=== PATIENT | female | born 1965 | race Caucasian/White ===

== ENCOUNTER 2022-07-15 17:56 | Emergency (ER) | payer MEDICARE ==
[~2022-07-15 17:56] MED LIST: Iopamidol 370 76% 100 ML VIAL ONE
[2022-07-15] MEDS ORDERED: Morphine 4 MG/ML VIAL ONE (18:56)
[2022-07-15] MEDS ORDERED: Ondansetron PF 4 MG/2 ML Vial ONE (18:56)
[2022-07-15] MEDS ORDERED: Pantoprazole 40 MG VIAL ONE (18:57)
[2022-07-15 19:01] LABS: Bilirubin Neg (Negative); Blood, Urine Negative (Negative); Clarity Clear (Clear); Glucose, Urine (Dipstick) Normal (Negative); Ketone, Urine 5 mg/dL (Negative); Leukocyte Negative (Negative); Nitrite Negative (Negative); Protein, Urine (Dipstick) 30 mg/dl (Neg-Trace); Specific Gravity, Urine 1.025 (1.005-1.030); Urobilinogen Normal mg/dL (Less than 2)
[2022-07-15 19:09] LABS: Bacteria/HPF Rare-Few HPF (None Seen); Mucous/LPF 2+ LPF (<2+); RBC/HPF 0-3 HPF (0-3); Squamous Epithelial 0-3 HPF (0-3); WBC/HPF 0-3 HPF (0-3)
[2022-07-15 19:16] LABS: #Basophils 0.1 10x3/uL (0.0-0.2); #Eosinphils 0.3 10x3/uL (0.0-0.5); #Monocytes 0.9 10x3/uL (0.0-1.1); #Neutrophils 7.1 10x3/uL (1.5-8.4); %Basophils 0.6 % (0.0-2.0); %Eosinophils 2.4 % (0.0-6.0); %Monocytes 8.9 % (0.0-10.0); %Neutrophils 69.8 % (40.0-75.0); Hemoglobin 13.3 g/dL (12.0-15.5); Mean Corpuscular Hemoglobin 30.7 pg (27.0-33.0); Mean Corpuscular Volume 87.8 fl (81.6-98.3); Mean Platelet Volume 9.8 fl (7.4-10.4); Platelet Count 260 10x3/uL (150-450); RBC Distribution Width 12.4 % (11.5-14.5); Red Blood Cell (RBC) Count 4.33 10x6/uL (3.90-5.03); White Blood Cell (WBC) Count 10.2 10x3/uL (3.5-10.5)
[2022-07-15 19:33] LABS: ALT (SGPT) 40 U/L (8-55); AST (SGOT) 48 U/L (5-34); Albumin 4.2 g/dL (3.5-5.0); Alkaline Phosphatase 109 U/L (40-110); Anion Gap 14 mmol/L (10-20); BUN (Urea Nitrogen) 12 mg/dL (9.8-20.1); Bilirubin, Total 0.5 mg/dL (0.2-1.2); Calc. Creatinine Clearance 0 mL/min (70-130); Calcium 9.4 mg/dL (7.8-10.44); Carbon Dioxide 28 mmol/L (22-29); Chloride 101 mmol/L (98-107); Estimated GFR 84; Globulin 3.1 g/dL (2.4-3.5); Glucose 125 mg/dL (70-105); Lipase 30 U/L (8-78); Potassium 3.8 mmol/L (3.5-5.1); Protein, Total 7.3 g/dL (6.0-8.3); Sodium 139 mmol/L (136-145)
[2022-07-15] MEDS ORDERED: Ketorolac Tromethamine 30 MG/ML VIAL ONE (21:03)
== END 2022-07-15 21:05 | disposition home or self-care (01) ==
LOC: CSHERS 17:56
DX: K29.70 Gastritis, unspecified, without bleeding (principal)
CPT/HCPCS: 74177; 80053; 81003; 81015; 82274; 83690; 85025; 96361; 96374; 96375; C9113; J1885; J2270; J2405; Q9967

== ENCOUNTER 2023-01-17 10:04 | Observation (INO) | payer MEDICARE ==
[2023-01-17] MEDS ORDERED: Aspirin Chewable 81 MG TAB ONE (10:51)
[2023-01-17] MEDS ORDERED: Nitroglycerin 0.4 MG TAB 1 EACH ONE (10:52)
[2023-01-17 10:57] LABS: #Basophils 0.1 10x3/uL (0.0-0.2); #Eosinphils 0.3 10x3/uL (0.0-0.5); #Monocytes 0.6 10x3/uL (0.0-1.1); #Neutrophils 3.3 10x3/uL (1.5-8.4); %Eosinophils 4.9 % (0.0-6.0); %Lymphocytes 29.2 % (18.0-47.0); %Monocytes 9.9 % (0.0-10.0); %Neutrophils 54.7 % (40.0-75.0); Hemoglobin 14.6 g/dL (12.0-15.5); Mean Corpuscular HGB CONC 34.7 g/dL (32.0-36.0); Mean Corpuscular Volume 86.4 fl (81.6-98.3); Mean Platelet Volume 9.6 fl (7.4-10.4); Platelet Count 267 10x3/uL (150-450); Red Blood Cell (RBC) Count 4.87 10x6/uL (3.90-5.03); White Blood Cell (WBC) Count 6.1 10x3/uL (3.5-10.5)
[2023-01-17 11:07] LABS: ALT (SGPT) 27 U/L (8-55); AST (SGOT) 27 U/L (5-34); Albumin 4.7 g/dL (3.5-5.0); Alkaline Phosphatase 97 U/L (40-110); Anion Gap 16 mmol/L (10-20); BUN (Urea Nitrogen) 12 mg/dL (9.8-20.1); Bilirubin, Total 0.5 mg/dL (0.2-1.2); Calc. Creatinine Clearance 0 mL/min (70-130); Calcium 9.5 mg/dL (7.8-10.44); Carbon Dioxide 26 mmol/L (22-29); Chloride 102 mmol/L (98-107); Estimated GFR 80; Globulin 3.4 g/dL (2.4-3.5); Glucose 126 mg/dL (70-105); Lipase 38 U/L (8-78); Protein, Total 8.1 g/dL (6.0-8.3); Sodium 140 mmol/L (136-145)
[2023-01-17] MEDS ORDERED: Morphine 4 MG/ML VIAL ONE (11:30)
[2023-01-17] MEDS ORDERED: Ondansetron PF 4 MG/2 ML Vial ONE (11:30)
[2023-01-17] MEDS ORDERED: Dextrose 5% in Water 1,000 ML IV PRN (12:21)
[2023-01-17] MEDS ORDERED: HumaLOG 300 UNITS/3 ML VIAL SC PRN ×2 (12:21)
[2023-01-17] MEDS ORDERED: Dextrose 50% Abboject 50 ML SYRINGE SLOW IVP PRN (12:21)
[2023-01-17 12:46] LABS: Magnesium 1.9 mg/dL (1.6-2.6)
[2023-01-17 13:58] LABS: Troponin I Less than 0.010 ng/mL (< 0.028)
[2023-01-17 14:28] LABS: Hemoglobin A1c 5.5 % (4.0-6.0)
[2023-01-17 15:48] VITALS: BMI 29.8
[2023-01-17 17:39] LABS: Troponin I 0.013 ng/mL (< 0.028)
[2023-01-17] MEDS ORDERED: ALPRAZolam 0.5 MG TAB PO SCH (22:30)
[2023-01-17] MEDS ORDERED: traZODone HCl 50 MG TAB PO SCH (22:30)
[2023-01-18 03:40] LABS: #Basophils 0.1 10x3/uL (0.0-0.2); #Eosinphils 0.4 10x3/uL (0.0-0.5); #Monocytes 0.7 10x3/uL (0.0-1.1); #Neutrophils 2.3 10x3/uL (1.5-8.4); %Basophils 1.1 % (0.0-2.0); %Eosinophils 6.4 % (0.0-6.0); %Lymphocytes 46.6 % (18.0-47.0); %Monocytes 10.3 % (0.0-10.0); %Neutrophils 35.3 % (40.0-75.0); Hemoglobin 12.8 g/dL (12.0-15.5); Mean Corpuscular HGB CONC 33.9 g/dL (32.0-36.0); Mean Corpuscular Volume 88.7 fl (81.6-98.3); Mean Platelet Volume 9.8 fl (7.4-10.4); Platelet Count 241 10x3/uL (150-450); RBC Distribution Width 12.3 % (11.5-14.5); Red Blood Cell (RBC) Count 4.26 10x6/uL (3.90-5.03); White Blood Cell (WBC) Count 6.4 10x3/uL (3.5-10.5)
[2023-01-18 03:45] LABS: Anion Gap 14 mmol/L (10-20); BUN (Urea Nitrogen) 12 mg/dL (9.8-20.1); Calc. Creatinine Clearance 90 mL/min (70-130); Calcium 8.9 mg/dL (7.8-10.44); Carbon Dioxide 29 mmol/L (22-29); Chloride 103 mmol/L (98-107); Estimated GFR 78; Glucose 99 mg/dL (70-105); Potassium 4.4 mmol/L (3.5-5.1); Sodium 142 mmol/L (136-145)
[2023-01-18] MEDS ORDERED: DULoxetine 30 MG CAP PO SCH (09:00)
[2023-01-18] MEDS ORDERED: lamoTRIgine 100 MG TAB PO SCH (09:00)
[2023-01-18] MEDS ORDERED: Dicyclomine 10 MG CAP PO SCH (09:00)
[2023-01-18] MEDS ORDERED: Propranolol HCl LA 60 MG CAP PO SCH (09:00)
[2023-01-18] MEDS ORDERED: Aspirin Chewable 81 MG TAB PO SCH (09:00)
[2023-01-18 15:20] VITALS: BP 110/64; TEMP 98.2
[2023-01-18] MEDS ORDERED: traZODone HCl 50 MG TAB PO SCH (21:00)
[2023-01-18] MEDS ORDERED: ALPRAZolam 0.5 MG TAB PO SCH (21:00)
== END 2023-01-18 15:20 | disposition home or self-care (01) ==
LOC: CSHERS 10:04 → CSHTELE 14:37
PROVIDERS: ADMIT Family Medicine; ATTEND Nurse Practitioner Family
DX: R07.2 Precordial pain (principal); E11.9 Type 2 diabetes mellitus without complications; E78.5 Hyperlipidemia, unspecified; I10 Essential (primary) hypertension; F31.9 Bipolar disorder, unspecified; R06.02 Shortness of breath; R51.9 Headache, unspecified; Z79.899 Other long term (current) drug therapy; Z88.2 Allergy status to sulfonamides; Z88.3 Allergy status to other anti-infective agents; Z88.8 Allergy status to other drugs, medicaments and biological substances; Z87.19 Personal history of other diseases of the digestive system; Z86.79 Personal history of other diseases of the circulatory system
CPT/HCPCS: 36415; 36416; 71045; 80048; 80053; 83036; 83690; 83735; 84443; 84484; 85025; 93005; 93010; 93306; 94762; 96372; 96374; 96375; G0378; J1650; J2270; J2405

== ENCOUNTER 2023-05-19 10:59 | Emergency (ER) | payer MEDICARE ==
[~2023-05-19 10:59] MED LIST changes: +Iopamidol 300 61% 100 ML VIAL FS ONE; -Iopamidol 370 76% 100 ML VIAL ONE
[2023-05-19] MEDS ORDERED: Pantoprazole 40 MG VIAL ONE (11:59)
[2023-05-19] MEDS ORDERED: Ondansetron PF 4 MG/2 ML Vial ONE (11:59)
[2023-05-19] MEDS ORDERED: Morphine 4 MG/ML VIAL ONE (11:59)
[2023-05-19 12:28] LABS: #Basophils 0.1 10x3/uL (0.0-0.2); #Eosinphils 0.2 10x3/uL (0.0-0.5); #Monocytes 0.6 10x3/uL (0.0-1.1); %Basophils 0.5 % (0.0-2.0); %Eosinophils 2.4 % (0.0-6.0); %Lymphocytes 15.3 % (18.0-47.0); %Monocytes 6.9 % (0.0-10.0); %Neutrophils 74.6 % (40.0-75.0); Hematocrit 42.3 % (34.9-44.5); Hemoglobin 14.7 g/dL (12.0-15.5); Mean Corpuscular HGB CONC 34.8 g/dL (32.0-36.0); Mean Corpuscular Hemoglobin 29.9 pg (27.0-33.0); Mean Corpuscular Volume 86.2 fl (81.6-98.3); Mean Platelet Volume 9.8 fl (7.4-10.4); Platelet Count 257 10x3/uL (150-450); RBC Distribution Width 11.9 % (11.5-14.5); Red Blood Cell (RBC) Count 4.91 10x6/uL (3.90-5.03); White Blood Cell (WBC) Count 9.3 10x3/uL (3.5-10.5)
[2023-05-19 12:41] LABS: ALT (SGPT) 18 U/L (8-55); AST (SGOT) 23 U/L (5-34); Albumin 4.3 g/dL (3.5-5.0); Alkaline Phosphatase 83 U/L (40-110); Anion Gap 17 mmol/L (10-20); BUN (Urea Nitrogen) 15 mg/dL (9.8-20.1); Bilirubin, Total 0.6 mg/dL (0.2-1.2); Calc. Creatinine Clearance 0 mL/min (70-130); Carbon Dioxide 25 mmol/L (22-29); Chloride 103 mmol/L (98-107); Estimated GFR 85; Globulin 3.3 g/dL (2.4-3.5); Glucose 124 mg/dL (70-105); Lipase 22 U/L (8-78); Potassium 4.5 mmol/L (3.5-5.1); Protein, Total 7.6 g/dL (6.0-8.3); Sodium 140 mmol/L (136-145)
[2023-05-19] MEDS ORDERED: Ketorolac Tromethamine 30 MG/ML VIAL ONE (13:04)
[2023-05-19] MEDS ORDERED: Metoclopramide HCl 10 MG/2 ML VIAL ONE (13:04)
[2023-05-19 13:19] LABS: Bilirubin Neg (Negative); Blood, Urine Negative (Negative); Clarity Clear (Clear); Glucose, Urine (Dipstick) Normal (Negative); Ketone, Urine Negative (Negative); Leukocyte Negative (Negative); Nitrite Negative (Negative); Protein, Urine (Dipstick) Negative (Neg-Trace); Urobilinogen Normal mg/dL (Less than 2)
[2023-05-19 13:32] LABS: Bacteria/HPF None Seen HPF (None Seen); CAUTI Indications for Culture Pelvic or flank pain; RBC/HPF None Seen HPF (0-3); Squamous Epithelial None Seen HPF (0-3); Urine Culture Reflex No No; WBC/HPF None Seen HPF (0-3)
== END 2023-05-19 14:29 | disposition home or self-care (01) ==
LOC: CSHERS 10:59
DX: K31.84 Gastroparesis (principal); E11.9 Type 2 diabetes mellitus without complications
CPT/HCPCS: 74177; 80053; 81001; 83605; 83690; 85025; 86850; 86900; 86901; 96361; 96374; 96375; C9113; J1885; J2270; J2405; J2765; Q9967

== ENCOUNTER 2023-05-31 14:47 | Emergency (ER) | payer MEDICARE ==
[2023-05-31] MEDS ORDERED: HYDROcodone/Acetaminophen 5/325 mg Tablet ONE (16:26)
[2023-05-31] MEDS ORDERED: Ketorolac Tromethamine 30 MG/ML VIAL ONE (16:27)
== END 2023-05-31 16:33 | disposition home or self-care (01) ==
LOC: CSHERS 14:47
DX: S43.401A Unspecified sprain of right shoulder joint, initial encounter (principal); X50.1XXA Overexertion from prolonged static or awkward postures, initial encounter
CPT/HCPCS: J1885

== ENCOUNTER → 2023-07-24 | Day surgery (SDC) | payer MEDICARE ==
[~2023-07-24] MED LIST changes: -Iopamidol 300 61% 100 ML VIAL FS ONE; +Iopamidol-M 300 61% 15 ML VIAL ONE
[2023-07-24 10:46] VITALS: BP 145/70; TEMP 97.5
== END ==
LOC: CSHRAD 10:00
PROVIDERS: ATTEND Neurological Surgery
PROC: B02BYZZ Computerized Tomography (CT Scan) of Spinal Cord using Other Contrast (ICD-10-PCS; principal; 2023-07-24)
DX: M47.12 Other spondylosis with myelopathy, cervical region (principal)
CPT/HCPCS: 62302; 72126; Q9967

== ENCOUNTER 2023-10-09 14:59 | Outpatient (CLI) | payer MEDICARE | END 2023-10-09 15:00 | disposition home or self-care (01) | LOC: CSHRAD 14:59 | PROVIDERS: ATTEND Neurological Surgery | DX: M54.12 Radiculopathy, cervical region (principal); Z98.1 Arthrodesis status; Z96.698 Presence of other orthopedic joint implants | CPT/HCPCS: 72040 ==

== ENCOUNTER 2024-02-04 12:30 | Emergency (ER) | payer MEDICARE ==
[2024-02-04 13:20] LABS: #Basophils 0.06 10x3/uL (0.0-0.2); #Eosinphils 0.15 10x3/uL (0.0-0.5); #Monocytes 0.65 10x3/uL (0.0-1.1); %Eosinophils 2.6 % (0.0-6.0); %Lymphocytes 32.8 % (18.0-47.0); %Monocytes 11.3 % (0.0-10.0); %Neutrophils 52.1 % (40.0-75.0); Hematocrit 38.8 % (34.9-44.5); Hemoglobin 13.9 g/dL (12.0-15.5); Mean Corpuscular HGB CONC 35.8 g/dL (32.0-36.0); Mean Corpuscular Hemoglobin 31.8 pg (27.0-33.0); Mean Corpuscular Volume 88.8 fl (81.6-98.3); Mean Platelet Volume 9.9 fl (7.4-10.4); Platelet Count 262 10x3/uL (150-450); RBC Distribution Width 11.9 % (11.5-14.5); Red Blood Cell (RBC) Count 4.37 10x6/uL (3.90-5.03); White Blood Cell (WBC) Count 5.8 10x3/uL (3.5-10.5)
[2024-02-04 13:30] LABS: ALT (SGPT) 17 U/L (8-55); AST (SGOT) 21 U/L (5-34); Albumin 3.8 g/dL (3.5-5.0); Alkaline Phosphatase 82 U/L (40-110); Anion Gap 12 mmol/L (10-20); BUN (Urea Nitrogen) 10 mg/dL (9.8-20.1); Bilirubin, Total 0.4 mg/dL (0.2-1.2); Calc. Creatinine Clearance 0 mL/min (70-130); Calcium 8.9 mg/dL (7.8-10.44); Carbon Dioxide 24 mmol/L (22-29); Chloride 107 mmol/L (98-107); Estimated GFR 92; Globulin 3.3 g/dL (2.4-3.5); Glucose 72 mg/dL (70-105); Potassium 4.3 mmol/L (3.5-5.1); Protein, Total 7.1 g/dL (6.0-8.3); Sodium 139 mmol/L (136-145)
[2024-02-04] MEDS ORDERED: Aspirin Chewable 81 MG TAB ONE (13:30)
[2024-02-04] MEDS ORDERED: Acetaminophen 500 MG TAB ONE (13:30)
[2024-02-04 13:35] LABS: Troponin I Less than 0.010 ng/mL (< 0.028)
== END 2024-02-04 14:21 | disposition home or self-care (01) ==
LOC: CSHERS 12:30
DX: R07.89 Other chest pain (principal); E11.43 Type 2 diabetes mellitus with diabetic autonomic (poly)neuropathy; K31.84 Gastroparesis; Z55.6 Problems related to health literacy
CPT/HCPCS: 71045; 80053; 84484; 85025; 93005

== ENCOUNTER 2024-02-11 12:58 | Inpatient (IN) | payer MEDICARE ==
[~2024-02-11 12:58] MED LIST changes: +Iopamidol 300 61% 100 ML VIAL FS ONE; -Iopamidol-M 300 61% 15 ML VIAL ONE
[2024-02-11] MEDS ORDERED: Morphine 4 MG/ML VIAL ONE ×2 (13:54→17:03)
[2024-02-11] MEDS ORDERED: Ondansetron PF 4 MG/2 ML Vial ONE (13:54)
[2024-02-11 14:22] LABS: #Basophils 0.09 10x3/uL (0.0-0.2); #Eosinphils 0.17 10x3/uL (0.0-0.5); #Monocytes 0.84 10x3/uL (0.0-1.1); #Neutrophils 5.06 10x3/uL (1.5-8.4); %Basophils 1.1 % (0.0-2.0); %Eosinophils 2.1 % (0.0-6.0); %Lymphocytes 24.5 % (18.0-47.0); %Monocytes 10.3 % (0.0-10.0); %Neutrophils 61.8 % (40.0-75.0); Hematocrit 34.9 % (34.9-44.5); Hemoglobin 12.3 g/dL (12.0-15.5); Mean Corpuscular HGB CONC 35.2 g/dL (32.0-36.0); Mean Corpuscular Hemoglobin 30.8 pg (27.0-33.0); Mean Corpuscular Volume 87.5 fl (81.6-98.3); Mean Platelet Volume 10.3 fl (7.4-10.4); Platelet Count 218 10x3/uL (150-450); RBC Distribution Width 11.6 % (11.5-14.5); Red Blood Cell (RBC) Count 3.99 10x6/uL (3.90-5.03); White Blood Cell (WBC) Count 8.2 10x3/uL (3.5-10.5)
[2024-02-11 14:37] LABS: ALT (SGPT) 16 U/L (8-55); AST (SGOT) 20 U/L (5-34); Albumin 3.5 g/dL (3.5-5.0); Alkaline Phosphatase 82 U/L (40-110); Anion Gap 11 mmol/L (10-20); BUN (Urea Nitrogen) 12 mg/dL (9.8-20.1); Bilirubin, Total 0.6 mg/dL (0.2-1.2); Calc. Creatinine Clearance 0 mL/min (70-130); Calcium 8.7 mg/dL (7.8-10.44); Carbon Dioxide 27 mmol/L (22-29); Chloride 104 mmol/L (98-107); Estimated GFR 89; Globulin 3.2 g/dL (2.4-3.5); Glucose 79 mg/dL (70-105); Lipase 26 U/L (8-78); Potassium 3.6 mmol/L (3.5-5.1); Protein, Total 6.7 g/dL (6.0-8.3); Sodium 138 mmol/L (136-145)
[2024-02-11 15:20] LABS: Bilirubin Neg (Negative); Blood, Urine Negative (Negative); Clarity Clear (Clear); Glucose, Urine (Dipstick) Normal (Negative); Ketone, Urine Negative (Negative); Leukocyte 25 (Negative); Nitrite Negative (Negative); Protein, Urine (Dipstick) Negative (Neg-Trace); Urobilinogen Normal mg/dL (Less than 2)
[2024-02-11] MEDS ORDERED: Piperacillin/Tazobactam 4.5 GM VIAL ONE (15:43)
[2024-02-11 15:59] LABS: CAUTI Indications for Culture Fever or rigors; RBC/HPF None Seen HPF (0-3); WBC/HPF 0-3 HPF (0-3)
[2024-02-11 16:01] LABS: Bacteria/HPF Rare-Few HPF (None Seen)
[2024-02-11 16:02] LABS: Urine Culture Reflex No No
[2024-02-11] MEDS ORDERED: Acetaminophen 325 MG TAB PO PRN (19:49)
[2024-02-11] MEDS ORDERED: Dextrose 50% Abboject 50 ML SYRINGE SLOW IVP PRN (19:49)
[2024-02-11] MEDS ORDERED: Calcium Carbonate 500 MG ChewTAB PO PRN (19:49)
[2024-02-11] MEDS ORDERED: Ondansetron PF 4 MG/2 ML Vial IVP PRN (19:49)
[2024-02-11] MEDS ORDERED: Glucagon 1 MG/ML KIT IM PRN (19:49)
[2024-02-11] MEDS ORDERED: Dextrose 5% in Water 1,000 ML IV PRN (19:49)
[2024-02-11] MEDS ORDERED: Senokot S 8.6-50 MG TAB PO PRN (19:49)
[2024-02-11] MEDS ORDERED: HumaLOG 300 UNITS/3 ML VIAL SC PRN (19:50)
[2024-02-11 20:39] VITALS: BMI 28.3
[2024-02-11] MEDS: HYDROcodone/Acetaminophen 5/325 mg Tablet PO PRN (20:47)
[2024-02-11] MEDS ORDERED: Dicyclomine 10 MG CAP PO PRN (20:50)
[2024-02-11] MEDS ORDERED: tiZANidine HCl 4 MG TAB PO PRN (21:22)
[2024-02-11] MEDS: Atorvastatin Calcium 40 MG TAB PO SCH (21:59)
[2024-02-11] MEDS: busPIRone HCl 5 MG TAB PO SCH (22:00)
[2024-02-11] MEDS: traZODone HCl 50 MG TAB PO SCH (22:00)
[2024-02-11] MEDS: Famotidine/PF 20 mg/2ml Vial SLOW IVP SCH (22:00)
[2024-02-11] MEDS: Cefepime 2 GM in Sodium Chloride 0.9% 100 ML IVPB SCH (22:01)
[2024-02-11] MEDS: Lactated Ringer's 1,000 ML IV SCH (22:01)
[2024-02-11] MEDS: metroNIDAZOLE 500 MG in Premix 1 BAG IVPB SCH (23:00)
[2024-02-11] MEDS: Morphine 2 MG/ML VIAL SLOW IVP PRN (23:07)
[2024-02-12 05:12] LABS: Anion Gap 10 mmol/L (10-20); BUN (Urea Nitrogen) 8 mg/dL (9.8-20.1); Calc. Creatinine Clearance 102 mL/min (70-130); Calcium 8.2 mg/dL (7.8-10.44); Carbon Dioxide 27 mmol/L (22-29); Chloride 108 mmol/L (98-107); Estimated GFR 96; Glucose 85 mg/dL (70-105); Potassium 4.3 mmol/L (3.5-5.1); Sodium 141 mmol/L (136-145)
[2024-02-12] MEDS: diphenhydrAMINE 25 MG CAP PO SCH (09:52)
[2024-02-12] MEDS: Saccharomyces boulardii 250 MG CAP PO SCH (09:52)
[2024-02-12] MEDS: Propranolol HCl LA 60 MG CAP PO SCH (09:53)
[2024-02-12] MEDS: DULoxetine 30 MG CAP PO SCH (09:53)
[2024-02-12] MEDS: Famotidine/PF 20 mg/2ml Vial SLOW IVP SCH (09:54)
[2024-02-12] MEDS: Prochlorperazine Edisylate 10 MG in Sodium Chloride 0.9% 50 ML IVPB SCH (09:59)
[2024-02-12] MEDS: traZODone HCl 50 MG TAB PO SCH (20:34)
[2024-02-12] MEDS: Enoxaparin 40 MG (0.4 mL) SYRINGE SC SCH (21:00)
[2024-02-13 04:47] LABS: Anion Gap 11 mmol/L (10-20); BUN (Urea Nitrogen) 7 mg/dL (9.8-20.1); Calc. Creatinine Clearance 105 mL/min (70-130); Calcium 8.4 mg/dL (7.8-10.44); Carbon Dioxide 26 mmol/L (22-29); Chloride 106 mmol/L (98-107); Estimated GFR 100; Glucose 86 mg/dL (70-105); Potassium 3.8 mmol/L (3.5-5.1); Sodium 139 mmol/L (136-145)
[2024-02-13 05:13] LABS: #Basophils 0.06 10x3/uL (0.0-0.2); #Monocytes 0.59 10x3/uL (0.0-1.1); #Neutrophils 3.58 10x3/uL (1.5-8.4); %Eosinophils 3.3 % (0.0-6.0); %Lymphocytes 27.2 % (18.0-47.0); %Monocytes 9.7 % (0.0-10.0); %Neutrophils 58.5 % (40.0-75.0); Hematocrit 35.4 % (34.9-44.5); Hemoglobin 12.1 g/dL (12.0-15.5); Mean Corpuscular HGB CONC 34.2 g/dL (32.0-36.0); Mean Corpuscular Hemoglobin 30.4 pg (27.0-33.0); Mean Corpuscular Volume 88.9 fl (81.6-98.3); Mean Platelet Volume 10.1 fl (7.4-10.4); Platelet Count 215 10x3/uL (150-450); RBC Distribution Width 11.7 % (11.5-14.5); Red Blood Cell (RBC) Count 3.98 10x6/uL (3.90-5.03); White Blood Cell (WBC) Count 6.1 10x3/uL (3.5-10.5)
[2024-02-13] MEDS: metroNIDAZOLE 500 MG in Premix 1 BAG IVPB SCH (09:50)
[2024-02-13] MEDS: Cefepime 2 GM in Sodium Chloride 0.9% 100 ML IVPB SCH (11:04)
[2024-02-14 04:16] LABS: #Basophils 0.07 10x3/uL (0.0-0.2); #Eosinphils 0.23 10x3/uL (0.0-0.5); #Monocytes 0.84 10x3/uL (0.0-1.1); #Neutrophils 3.36 10x3/uL (1.5-8.4); %Basophils 1.1 % (0.0-2.0); %Eosinophils 3.5 % (0.0-6.0); %Lymphocytes 31.4 % (18.0-47.0); %Monocytes 12.7 % (0.0-10.0); Hematocrit 34.5 % (34.9-44.5); Hemoglobin 11.9 g/dL (12.0-15.5); Mean Corpuscular HGB CONC 34.5 g/dL (32.0-36.0); Mean Corpuscular Hemoglobin 30.5 pg (27.0-33.0); Mean Corpuscular Volume 88.5 fl (81.6-98.3); Mean Platelet Volume 10.4 fl (7.4-10.4); Platelet Count 235 10x3/uL (150-450); RBC Distribution Width 11.7 % (11.5-14.5); White Blood Cell (WBC) Count 6.6 10x3/uL (3.5-10.5)
[2024-02-14 04:25] LABS: Anion Gap 11 mmol/L (10-20); BUN (Urea Nitrogen) 9 mg/dL (9.8-20.1); Calc. Creatinine Clearance 111 mL/min (70-130); Calcium 8.5 mg/dL (7.8-10.44); Carbon Dioxide 25 mmol/L (22-29); Chloride 107 mmol/L (98-107); Estimated GFR 103; Glucose 105 mg/dL (70-105); Potassium 3.3 mmol/L (3.5-5.1); Sodium 140 mmol/L (136-145)
[2024-02-14 09:18] VITALS: BP 134/63; TEMP 97.6
[2024-02-14] MEDS: Potassium Chloride 20 MEQ TAB PO SCH (10:20)
== END 2024-02-14 12:56 | disposition home or self-care (01) | DRG 392 ==
LOC: CSHERS 12:58 → CSHERHOLD 16:46 → CSHTELE 20:05 → OBSVTOIN 02-12 14:43
PROVIDERS: ADMIT Emergency Medicine; ATTEND Internal Medicine
DX: K57.20 Diverticulitis of large intestine with perforation and abscess without bleeding (principal); E11.9 Type 2 diabetes mellitus without complications; I10 Essential (primary) hypertension; E78.5 Hyperlipidemia, unspecified; F41.9 Anxiety disorder, unspecified; F31.9 Bipolar disorder, unspecified; K21.9 Gastro-esophageal reflux disease without esophagitis; Z98.890 Other specified postprocedural states; Z98.51 Tubal ligation status; Z88.2 Allergy status to sulfonamides; Z88.8 Allergy status to other drugs, medicaments and biological substances; Z79.899 Other long term (current) drug therapy; Z79.82 Long term (current) use of aspirin; Z87.891 Personal history of nicotine dependence
CPT/HCPCS: 36415; 36416; 74177; 80048; 80053; 81001; 83605; 83690; 83735; 85025; 93005; 96365; 96375; 96376; G0378; J0692; J0780; J1650; J2270; J2272; J2405; J2543; J3490; J7120; Q9967; S0028

== ENCOUNTER 2025-05-26 23:01 | Emergency (ER) | payer OTHER ==
[2025-05-26] MEDS ORDERED: Acetaminophen 500 MG TAB ONE (23:40)
[2025-05-26 23:41] LABS: #Basophils 0.07 10x3/uL (0.0-0.2); #Eosinophils 0.26 10x3/uL (0.0-0.5); #Monocytes 0.69 10x3/uL (0.0-1.1); #Neutrophils 2.97 10x3/uL (1.5-8.4); %Basophils 1.1 % (0.0-2.0); %Eosinophils 4.1 % (0.0-6.0); %Lymphocytes 37.0 % (18.0-47.0); %Monocytes 10.8 % (0.0-10.0); %Neutrophils 46.7 % (40.0-75.0); Hematocrit 33.7 % (34.9-44.5); Hemoglobin 11.5 g/dL (12.0-15.5); Mean Corpuscular Hemoglobin 28.4 pg (27.0-33.0); Mean Corpuscular Volume 83.2 fL (81.6-98.3); Platelet Count 268 10x3/uL (150-450); Red Blood Cell (RBC) Count 4.05 10x6/uL (3.90-5.03); White Blood Cell (WBC) Count 6.37 10x3/uL (3.5-10.5)
[2025-05-27 00:01] LABS: ALT (SGPT) 18 U/L (Less than 34); AST (SGOT) 23 U/L (11-34); Albumin 3.9 g/dL (3.1-4.5); Alkaline Phosphatase 81 U/L (40-110); Anion Gap 14 mmol/L (10-20); BUN (Urea Nitrogen) 12 mg/dL (9.8-20.1); Bilirubin, Total 0.4 mg/dL (0.3-1.2); CK (CPK) 128 U/L (29-168); Calc. Creatinine Clearance 0 mL/min (70-130); Calcium 8.6 mg/dL (7.8-10.44); Carbon Dioxide 26 mmol/L (22-29); Chloride 103 mmol/L (98-107); Globulin 3.4 g/dL (2.4-3.5); Glucose 105 mg/dL (70-105); Lipase 22 U/L (8-78); Potassium 3.6 mmol/L (3.5-5.1); Sodium 139 mmol/L (136-145)
[2025-05-27 00:06] LABS: Troponin I Less than 0.010 ng/mL (< 0.028)
== END 2025-05-27 02:16 | disposition home or self-care (01) ==
LOC: CSHERS 23:01
DX: R55 Syncope and collapse (principal); S00.83XA Contusion of other part of head, initial encounter; E86.0 Dehydration; E11.43 Type 2 diabetes mellitus with diabetic autonomic (poly)neuropathy; K31.84 Gastroparesis; W19.XXXA Unspecified fall, initial encounter; W22.8XXA Striking against or struck by other objects, initial encounter; Y93.89 Activity, other specified; Y92.002 Bathroom of unspecified non-institutional (private) residence as the place of occurrence of the external cause
CPT/HCPCS: 70450; 70486; 71045; 72125; 80053; 82550; 83690; 84484; 85025; 93005